=== PATIENT | female | born 1985 ===

== ENCOUNTER 2025-02-18 18:46 | Emergency (ER) | payer OTHER, SELFPAY ==
--- OUTSIDE RECORDS SUMMARY | 2018-07-28 05:26 | XMS_ITS | Continuity of Care Document ---
Author Organization [facility] Address [address] [address] [place] [address] Phone Care Team Providers Care Track Service Person Name Role Phone Link Michael RONDON Unavailable Unavailable Allergies, Adverse Reactions, Alerts Substance Reaction Status Criticality No Known Allergies Active No Inform ation Medications Medication Instructions Dosage Effective Dates (start - stop) Status Comments MICROGESTIN (unknown strength) take 1 tablet by oral route every day Not Available - Active Fleet Enema 19 gram-7 gram/118 mL Use as directed - Active fluoxetine 20 mg capsule take 1 by Oral route every day 1 - Active Procedures Procedure Date Offic/outpt E&m Estab Mod-hi 2 16 Offic/outpt E&m Estab Mod-hi 2 15 Colonoscopy Flex; Dx (jan Pro) 15 Offic/outpt E&m New Mod-mi Advance Directives Directive Yes / No Effective Date File Name No Information Encounters Encounter Description Practice Location Reason(s) For Visit Diagnoses Date Provider Providers Copied on Encounter [facility], [address] [address], [place], [id number], [place] tel:[phone] [facility] No Information 9 Junior Rodriguez. [address] [facility], [facility] [address], [place], [place], [id number], [place]. tel:[phone] Offic/outpt E&m Estab Mod-hi 2 [facility], [address] [address], [place], [id number], [place] tel:[phone] [facility] GI Symptoms or Concerns (chief complaint) Rectal bleeding 6 Adiel Nichole. [address] [facility], [facility] [address], [place], [id number], [place]. tel:[phone] Referring Provider: Referral Self, USE FOR SELF REFERRALS. Offic/outpt E&m [facility] Mod-hi 2 [facility], [address] [address], [place], [place], [id number], [place] tel:[phone] [facility] GI Symptoms or Concerns (chief complaint) Rectal Bleed/BRBPRHem orrhage of anus and rectum 5 Andrew Mckeon. [address] [facility], [address], [id number], [place]. tel:[phone] Referring Provider: Referral Self, USE FOR SELF REFERRALS. [facility], [address] [address], [place], [place], [id number], [place] tel:[phone] [facility] HemorrhoidsRec greer Bleed/BRBPRHem orrhoids 5 Elizabeth Hernandez. [address] [facility], [facility] [address], [place], [id number], [place]. [phone] Referring Provider: Referral Self, USE FOR SELF REFERRALS. Offic/outpt E&m [facility], [address] [address], [place], [place], [id number], [place] tel:[phone] [facility] GI Symptoms or Concerns (chief complaint) Hematochezia/m randall 0 4 No Information Referring Provider: Referral Self, USE FOR SELF REFERRALS. Family History Family Member Type Diagnosis Age At Onset Mother Problem (finding) Alive and well Father Problem (finding) Alive and well Sister Problem (finding) Alive and well Son Problem (finding) Alive and well Brother Problem (finding) Alive and well Immunizations Vaccine Date Status Comments Influenza virus vaccine, injectable, quadrivalent, split virus, preservative free, 3 years or older Fluarix Quad [id number] administered Source: Other Provid er Flu (split) (3 yrs or older) administered Note: Invalid documented admin date was NULL/NULL/2012. ; Source: Other Provider Payers Payer name Insurance type Covered republican ID Authoriza tifelton(s) No Information Social History Type Description Quantity Date Captured Comments Sex Female Smoking Status No Information Chief Complaint And Reason For Visit No Information Reason For Referral Reason For Referral No Information Plan Of Treatment Date Type Action Status Referral Ordered: referred to Pelvic floor center for defocograpthy (related to Rectal Bleed/BRBPR) ordered Referral Ordered: referred to Pelvic floor center for defocograpthy ordered History Of Present Illness Encounter Date Complaint History Of Prese nt Illness GI Symptoms or Concerns The jeane ramos is a 30-year-old female seen by us in the past for intermittent rectal bleeding, incomplete evacuation, and constipation, seen for evaluation of bright red blood per rectum for the last week.The patient was initially seen by us about a year ago. In May 2014, she had a colonoscopy for rectal bleeding. This revealed small internal hemorrhoids and was otherwise normal including the ileum. She was seen in the office by Dr. Morales in September 2014 with complaints of rectal pressure, incomplete evacuation, and intermittent rectal bleeding. Recommendation at that time was for increased fiber and referral to the Pelvic Floor Center. She tells me she did not follow up with the Pelvic Floor Center, but did increase the fiber in her diet and did well until about a week ago, when she began having increased blood in the stool.Lately, she has been having three soft semi-formed stools per day without straining or constipation. This has been the case for the last four months GI Symptoms or Concerns Mable is a 29-year-old woman seen today because of recurrent symptoms of rectal pressure. When she tries to have a bowel movement, she has a sense of increased pressure and is unable to fully go. With this, she may have some bleeding and passes what she describes as a jelly-like substance. There is no real tenesmus. She is able to differentiate between bowel movement or gas. She had undergone colonoscopy within the last four months that was normal with no evidence of disease seen on retroflexion. Her symptoms are not associated with menstrual cycle. No associated urinary symptoms are noted. The issue has been ongoing and with this we are seeing her.With this, she does describe alternating bowel habits. She often fluctuates between looser stools and more constipation. She has not had any weight loss. Menstrual cycle is normal. She has had two pregnancies. She states that recent pelvic exams have been normal. Given her concern, we are seeing her.She otherwise is healthy. GI Symptoms or Concerns The jeane ent is a very pleasant 28-year-old female who presented to clinic today for evaluation of bright red blood per rectum, sensation of incomplete evacuation, and which she describes as a currant jelly like substance after bowel movements. When talking with Mable further, she reports she has had problems with IBS in the past, but really had not had a formal work up for these symptoms. She did have a hemorrhoid banding procedure done by an outside doctor x2 approximately 2 years ago, she reports it is very uncomfortable. She has two sons at home, age 2 and 4 months. She reports her symptoms started to get significantly worse over the last several months. She is now noticing blood with nearly every bowel movement once again and it is painless. She also describes this jelly like substance after bowel movements and a sensation of having to strain to help complete her evacuation. There has been no shaji tenesmus. She denies any fevers or chills. Her weight has been stable and he Functional Status Date Functional Assessmen t No Information Instructions Date Instruction Additional Infor tom 1. Flex Sig [facility]2. request [place] urgent care records, labs3. high fiber diet, avoid straining/constipation4. f/u pending flex sig results Related to Rectal bleeding Flexible Sigmoidoscopy Related t o Hemorrhage of anus and rectum Much of the symptoma tology suggests pelvic floor dysfunction. I suggested that she start with Metamucil on a regular basis one to two tablespoons per day with increasing fluid. In addition she can be set up for Defograms to assess whether there is a pelvic floor process, which seems likely based on her history, although she passes a small amount of blood and has a sense of incomplete evacuation. There is no evidence of colitis or proctitis seen on her recent examination.She will start on the Metamucil and pelvic floor study will be arranged. The followup can then be undertaken to assess whether she is doing well with further recommendations to follow. I am hesitant at this stage otherwise to change her diet, might we can certainly consider lactose restriction, a low FODMAP diet, if she is not feeling better.We appreciate assisting in this patient's care. Related to Rectal Bleed/BRBPR Hemorrhoids Related to Hemor rhoids High Fiber Diet Related to Hemor rhoids Colonoscopy Assessments Type Assessment Date No Information Patient Care Teams Name Effective Dates (start - stop) Status Members No Information
--- OUTSIDE RECORDS SUMMARY | 2018-07-28 05:26 | XMS_ITS | Continuity of Care Document ---
Author Organization [facility] Address [address] [address] [place] [address] Phone Care Team Providers Care Pharmacy Analyst Name Role Phone Link Mcihael RONDON Unavailable Unavailable Allergies, Adverse Reactions, Alerts [...] Dx (jan Pro) 15 Offic/outpt E&m New Mod-nc Advance Directives Directive Yes / No Effective Date File Name No Information Encounters Encounter Description Practice Location Reason(s) For Visit Diagnoses Date Provider Providers Copied on Encounter [facility], [address] [address], [place], [id number], [place] tel:[phone] [facility] No Information 9 Junior Rodriguez. [address] [facility], [facility] [address], [place], [place], [id number], [place]. tel:[phone] Offic/outpt E&m Estab Mod-hi 2 [facility], [address] [address], [place], [id number], [place] tel:[phone] [facility] GI Symptoms or Concerns (chief complaint) Rectal bleeding 6 Adiel Nichole. [address] [facility], [facility] [address], [place], [id number], [place]. tel:[phone] Referring Provider: Referral Self, USE FOR SELF REFERRALS. Offic/outpt E&m [facility] Mod-hi 2 [facility], [address] [address], [place], [place], [id number], [place] tel:[phone] [facility] GI Symptoms or Concerns (chief complaint) Rectal Bleed/BRBPRHem orrhage of anus and rectum 5 Andrew Mckeon. [address] [facility], [address], [id number], [place]. tel:[phone] Referring Provider: Referral Self, USE FOR SELF REFERRALS. [facility], [address] [address], [place], [place], [id number], [place] tel:[phone] [facility] HemorrhoidsRec greer Bleed/BRBPRHem orrhoids 5 Elizabeth Hernandez. [address] [facility], [facility] [address], [place], [id number], [place]. [phone] Referring Provider: Referral Self, USE FOR SELF REFERRALS. Offic/outpt E&m [facility], [address] [address], [place], [place], [id number], [place] tel:[phone] [facility] GI Symptoms or Concerns (chief complaint) Hematochezia/m [...] free, 3 years or older Fluarix Quad [id number] administered Source: Other Provid er Flu (split) (3 yrs or older) administered Note: Invalid documented admin date was NULL/NULL/2012. ; Source: Other Provider Payers Payer name Insurance type Covered democrat ID Authoriza tifelton(s) No Information Social History [...] Instruction Additional Infor tom 1. [facility]2. request [place] urgent care records, labs3. high fiber diet, [...]
--- OUTSIDE RECORDS SUMMARY | 2025-02-18 18:49 | XMS_ITS | Encounter Summary ---
Author Organization [facility] Address [address] [place] [address] Care Team Providers Care Biometric Fingerprinting Technician Name Role Phone DanyelAndrewamelia HICKEY BUILDING GUARD DEPUTY SHERIFF Unavailable [phone] Angelita Montaño APRN BUILDING GUARD DEPUTY SHERIFF Unavailable [phone] Jonathan Zuleta MD Unavailable [phone] MD Primary Care Provider + Reason for Visit * Reason Onset Date Comments Medication Request 12/19/2012 bug bite Encounter Details Date Type Department Care Team (Late st Contact Info) Description 12/19/2012 [facility] Medical Advice [address] [address] Leonor Reis MD Medication Request (bug bite) Social History Tobacco Use Types Packs/Day Years Used Date Smoking Tobacco: Former Cigarettes Q uit: 03/19/2011 Smokeless Tobacco: Never Comments:3 a day Alcohol Use Standard Drinks/Week Comments No 0 (1 standard drink = 0.6 oz pur e alcohol) drinks 1 time a month Comments Unknown Sex and Gender Information Value Date Recorded Sex Assigned at Female 02/15/2022 10:41 PM CDT Legal Sex Female 4:12 AM PUBLIC ADMINISTRATION TEACHER Gender Identity Female 02/15/2022 10:41 PM CDT Sexual Orientation Straight 02/15/2022 10 :41 PM CDT Occupation Industry Job Start Date Job End Date [employer] Not on file Not on file Not on file documented as of this encounter Miscellaneous Notes * Telephone Encounter - Olivia Macario - 12/19/2012 12:03 PM CDT Sent the message to Dr. Reis to review. Olivia RN Message handled by Nurse Triage. documented in this encounter Plan of Treatment Not on file documented as of this encounter Visit Diagnoses Not on filedocumented in this encounter Care Teams Biometric Fingerprinting Technician Relationship Specialty Start Date End Date Angelita Montaño APRN BUILDING GUARD DEPUTY SHERIFF [address] [place] [address] PCP - Assigned PCP 12/08/17 07/29/[address] MD [address] [place] [address] PCP - General stringed instrument tuner 06/12/24 Angelita Montaño APRN BUILDING GUARD DEPUTY SHERIFF [address] [place] [address] Assigned PCP 12/08/17 03/16/22 Jonathan Zuleta MD [address] [place] [address] Assigned Surgical Provider 09/17/23 documented as of this encounter
--- OUTSIDE RECORDS SUMMARY | 2025-02-18 18:49 | XMS_ITS | Encounter Summary ---
Author Organization [facility] Address [address] [place] [address] Care Team Providers Care Endocrinologist Name Role Phone Angelita Montaño APRN STATION BAGGAGE AGENT Unavailable [phone] Angelita Montaño APRN STATION BAGGAGE AGENT Unavailable [phone] Jonathan Zuleta MD Unavailable [phone] MD Primary Care Provider + Encounter Details Date Type Department Care Team (Late st Contact Info) Description 06/16/2008 [facility] Medical Advice [address] [address] Leonor Reis MD Social History Tobacco Use Types Packs/Day Years Used Date Smoking Tobacco: Every Day Cigarettes Comments:3 a day Alcohol Use Standard Drinks/Week Comments Yes 0 (1 standard drink = 0.6 oz pur e alcohol) drinks 1 time a month Comments No Sex and Gender Information Value Date Recorded Sex Assigned at Female 02/15/2022 10:41 PM CDT Legal Sex Female 4:12 AM DIE CAST SUPERVISOR Gender Identity Female 02/15/2022 10:41 PM CDT Sexual Orientation Straight 02/15/2022 10 :41 PM CDT Occupation Industry Job Start Date Job End Date [place] Not on file Not on file Not on file documented as of this encounter Plan of Treatment Not on file documented as of this encounter Visit Diagnoses Not on filedocumented in this encounter Care Teams Endocrinologist Relationship Specialty Start Date End Date Angelita Montaño APRN STATION BAGGAGE AGENT [address] [place] [address] PCP - Assigned PCP 12/08/17 07/29/[address] MD [address] [place] [address] PCP - General chef kitchen manager 06/12/24 Angelita Montaño APRN STATION BAGGAGE AGENT [address] [address] [place], [place] [address] Assigned PCP 12/08/17 03/16/22 Jonathan Zuleta MD [address] [place] [address] Assigned Surgical Provider 09/17/23 documented as of this encounter
--- OUTSIDE RECORDS SUMMARY | 2025-02-18 18:49 | XMS_ITS | Encounter Summary ---
Author Organization [facility] Address [address] [place] [address] Care Team Providers Care Precision Jig Grinder Name Role Phone Angelita Montaño APRN TWISTING DEPARTMENT END FINDER Unavailable [phone] Angelita Montaño APRN TWISTING DEPARTMENT END FINDER Unavailable [phone] Jonathan Zuleta MD Unavailable [phone] MD Primary Care Provider + Encounter Details Date Type Department Care Team (Late st Contact Info) Description 07/22/2008 [facility] Medical Advice [address] [address] Lucero Patel Social History Tobacco Use Types Packs/Day Years Used Date Smoking Tobacco: Every Day Cigarettes Comments:3 a day Alcohol Use Standard Drinks/Week Comments Yes 0 (1 standard drink = 0.6 oz pur e alcohol) drinks 1 time a month Comments No Sex and Gender Information Value Date Recorded Sex Assigned at Female 02/15/2022 10:41 PM CDT Legal Sex Female 4:12 AM ARMATURE WINDER REPAIR HELPER Gender Identity Female 02/15/2022 10:41 PM CDT Sexual Orientation Straight 02/15/2022 10 :41 PM CDT Occupation Industry Job Start Date Job End Date [employer] Not on file Not on file Not on file documented as of this encounter Plan of Treatment Not on file documented as of this encounter Visit Diagnoses Not on filedocumented in this encounter Care Teams Precision Jig Grinder Relationship Specialty Start Date End Date Angelita Montaño APRN TWISTING DEPARTMENT END FINDER [address] [place] [address] PCP - Assigned PCP 12/08/17 07/29/[address] MD [address] [place] [address] PCP - General paleobotanist 06/12/24 Angelita Montaño APRN TWISTING DEPARTMENT END FINDER [address] [address] [place] [address] Assigned PCP 12/08/17 03/16/22 Jonathan Zuleta MD [address] [place] [address] Assigned Surgical Provider 09/17/23 documented as of this encounter
--- OUTSIDE RECORDS SUMMARY | 2025-02-18 18:49 | XMS_ITS | Clinical Summary ---
Author Organization [facility] Address [address] [place] [address] Care Team Providers Care Arch Cushion Press Operator Name Role Phone Pcp, No Primary Care Provider Unavailabl e Allergies No known active allergies Medications temazepam (RESTORIL) 30 mg capsule Take 30 mg by mouth at bedtime if needed. 4 Active albuterol HFA (PRO-AIR; VENTOLIN; PROVENTIL) 90 mcg/actuation inhalerIndicati ons:SOB (shortness of breath) Inhale 1-2 Puffs by mouth every 4 hours if needed for Shortness Of Breath. 1 Each 4 Active benzonatate (TESSALON) 200 mg capsuleIndicati ons:Subacute cough Take 1 Capsule (200 mg) by mouth 3 times daily if needed for Cough. 21 Capsule 4 Active lisdexamfetamin e (VYVANSE) 40 mg capsule Take 1 capsule by mouth each morning* Active minoxidiL (LONITEN) 2.5 mg tab PLEASE SEE ATTACHED FOR DETAILED DIRECTIONS 4 Active buPROPion (WELLBUTRIN XL) 300 mg Extended-Releas e tablet Take 300 mg by mouth. Active escitalopram oxalate (LEXAPRO) 20 mg tablet Take 20 mg by mouth. 4 Active spironolactone (ALDACTONE) 100 mg tablet TAKE ONE TABLET BY MOUTH ONCE DAILY WITH A GLASS FULL OF WATER, ONGOING. 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 Immunizations Immunization Administration Dates Next Due HPV 9 (Gardasil 9) 02/21/2007,09/10/2006, 007 Human Papilloma Virus Vaccine 02/21/2007, 007,07/09/2006 INFLUENZA, IIV3 PF (AGE >= 6 MO) 07/20/2017,02/24 Influenza, IIV3 (Age >=3 years) 02/19/2013,04/10,06/10/2008 Influenza, IIV4 02/26/2023,,03/16/2019,2017 Influenza, IIV4 (=>6mos) MDV 02/22/2015 MMR 11/10/1996 Pneumococcal Poly,23-Valent (Pneumovax) 03/28/2020 Td (Age >=7 Years) 11/10/1996 Tdap 08/02/2023,03/28/2020,06/10/2008 Social History Tobacco Use Types Packs/Day Years Used Date Smoking Tobacco: Former Cigarettes Passive Smoke Exposure: Past Smokeless Tobacco: Never Tobacco Cessation:Counseling Given: Not Answered Alcohol Use Standard Drinks/Week Comments No 0 (1 standard drink = 0.6 oz pur e alcohol) Social Connections Answer Date Recorded Do you often feel lonely or isolated from those around you? 0 04/22/2024 Financial Resource Strain Answer Date R ecorded Difficulty of Paying Living Expenses 3 06/27/2024 Difficulty of Paying Living Expenses Not on file 06/27/2024 Food Insecurity Answer Date Recorded Do you worry your food will run out before you are able to buy more? 1 04/22/2024 Transportation Needs Answer Date Record ed Does lack of transportation keep you from medica l appointments? 1 04/22/2024 Does lack of transportation keep you from work, meetings or getting things that you need? 1 04/22/2024 Housing Stability Answer Date Recorded What is your housing situation today? 1 04/22/2024 Utilities Answer Date Recorded Do you have trouble paying f or utilities (for example, heat, electricity, water, phone)? 1 04/22/2024 Comments No Sex and Gender Information Value Date Recorded Sex Assigned at Not on file Legal Sex Female 8:38 AM SENIOR COMMUNICATIONS ENGINEER Gender Identity Not on file Sexual Orientation Not on file Obstetrics History Para Term AB IAB SAB Ectopic Multiple Livin g Live Births 2 2 2 0 0 0 0 0 0 2 1 Date Outcome GA Total Labor Labor/2nd/3rd Weight Sex Type Anes PTL Bernice A1 A5 Name Clin Term 014 Term 37w 6d 3.57 kg (7 lb 14 oz) M Vag Living 7 9 CARIN-Helder LUKE LLA,B B Delivery Location:[facility] Last Filed Vital Signs Vital Sign Reading Time Taken Comments Blood Pressure 125/77 04/22/2024 6:15 PM SENIOR COMMUNICATIONS ENGINEER MAP - 93 Pulse 97 04/22/2024 6:15 PM SENIOR COMMUNICATIONS ENGINEER Temperature 36.5 C (97.7 F) 04/22/2024 6:15 PM SENIOR COMMUNICATIONS ENGINEER Respiratory Rate 16 04/22/2024 6:15 PM SENIOR COMMUNICATIONS ENGINEER Oxygen Saturation 97% 04/22/2024 6:15 PM SENIOR COMMUNICATIONS ENGINEER Inhaled Oxygen Concentration - - Weight 59 kg (130 lb) 04/09/2024 4:54 PM SENIOR COMMUNICATIONS ENGINEER Height 157.5 cm (5' 2) 10/24/2021 3:46 PM CDT Body Mass Index 23.78 10/24/2021 3:46 PM CDT Plan of Treatment Health Maintenance Due Date Last Done Comments Depression screening for age 12+ 1996 HIV for age 15-65 1999 Hepatitis C screening for age 18-79 2002 Hepatitis B series for 19+ (1 of 3 - 19+ 3-dose series) 2003 Pap test for age 21-65 2005 BMI (ht and wt on same day) for age 18+ 10/24/2022 10/24/2021 COVID-19 vaccine series ( season) 2025 06/09/2021, 11/07/2020, 10/17/2020 Influenza Vaccine (#1) 2025 , 03/28/2020, 03/16/2019, Additional history exists Tetanus booster 08/01/2033 08/02/2023, 06/2019, 06/10/2008, Additional history exists RSV vaccine for adults or (1 - 1-dose 75+ series) 2059 HPV series for age 9-45 Completed 02/22/20 07, 02/21/2007, 09/10/2006, Additional history exists Pneumococcal series for age 6-49 Aged Out 03/28/2020 No longer eligible based on patient's age to complete this topic Insurance [employer] Advance Directives * Full Code (Latest Code Status on File) Date Activated Date Inactivated Comments 09/17/2013 6:53 AM 09/18/2013 1:56 PM * Full Code Date Activated Date Inactivated Comments 09/16/2013 7:25 PM 09/17/2013 6:53 AM * Full Code Date Activated Date Inactivated Comments 09/16/2013 7:19 PM 09/16/2013 7:25 PM * Full Code Date Activated Date Inactivated Comments 08/03/2013 4:14 PM 08/03/2013 7:21 PM * Full Code Date Activated Date Inactivated Comments 07/27/2013 10:24 PM 07/30/2013 2:46 PM Care Teams Arch Cushion Press Operator Relationship Specialty Start Date End Date Pcp, No . PCP - General 03/27/21
--- OUTSIDE RECORDS SUMMARY | 2025-02-18 18:49 | XMS_ITS | Encounter Summary ---
Author Organization [facility] Address [address] [place] [address] Care Team Providers Care Auto Refinisher Name Role Phone DanyelAndrewamelia HICKEY TECHNICAL OPERATIONS MANAGER Unavailable [phone] Angelita Montaño APRN TECHNICAL OPERATIONS MANAGER Unavailable [phone] Jonathan Zuleta MD Unavailable [phone] MD Primary Care Provider + Reason for Visit * Reason Onset Date Comments Other 11/25/2011 Encounter Details Date Type Department Care Team (Late st Contact Info) Description 11/25/2011 MyC Medical Advice [address] [address] Leonor Reis MD Other Social History Tobacco Use Types Packs/Day Years Used Date Smoking Tobacco: Former Cigarettes Q uit: 03/19/2011 Comments:3 a day Alcohol Use Standard Drinks/Week Comments Yes 0 (1 standard drink = 0.6 oz pur e alcohol) drinks 1 time a month Comments Yes Sex and Gender Information Value Date Recorded Sex Assigned at Female 02/15/2022 10:41 PM CDT Legal Sex Female 4:12 AM LANGUAGE PATHOLOGIST Gender Identity Female 02/15/2022 10:41 PM CDT Sexual Orientation Straight 02/15/2022 10 :41 PM CDT 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 on file Not on file documented as of this encounter Plan of Treatment Not on file documented as of this encounter Visit Diagnoses Not on filedocumented in this encounter Care Teams Auto Refinisher Relationship Specialty Start Date End Date Angelita Montaño APRN TECHNICAL OPERATIONS MANAGER [address] [address] [address] PCP - Assigned PCP 12/08/17 07/29/[address] MD [address] [place] [address] PCP - General hull grinder 06/12/24 Angelita Montaño APRN TECHNICAL OPERATIONS MANAGER [address] [address] [address] Assigned PCP 12/08/17 03/16/22 Jonathan Zuleta MD [address] [place] [address] Assigned Surgical Provider 09/17/23 documented as of this encounter
--- OUTSIDE RECORDS SUMMARY | 2025-02-18 18:49 | XMS_ITS | Patient Health Record ---
Author Organization [facility] Address [address] [place] [address] Care Team Providers Care Braider Tender Name Role Phone Linda St Primary Care Provider MARIA M Marlow Unavailable [phone] Allergies Allergen (clinical drug ingredient) Drug/Non Drug Allergy documented on EMR Reaction Allergy Type Onset Date Status Na (uncoded) Unknown Allergy Active Reason For Referral No Information Medications Medication SIG (Take, Route, Frequency, Duration) Notes Start Date End Date Status PriLOSEC 20 MG Capsule Delayed Release 1 capsule Orally Once a day; Duration: 30 day(s) 01/20/2021 Active Wellbutrin SR 150 MG Tablet Extended Release 12 Hour 1 tablet in the morning Orally Once a day; Duration: 30 day(s) 2 daily Active Lexapro 20 MG Tablet 1 tablet Orally Onc e a day; Duration: 30 day(s) Active Temazepam 15 MG Capsule 1 capsule at bed time as needed Orally Once a day Active Social History Tobacco Use: Social History Observation Description Date Details (start date - stop date) Current Smoker NA - NA Social History Alcohol Use: Social Info Question Answer Notes Recreational drugs Recreational Drug Use: No Alcohol Screen Did you have a drink containing alcohol in the past year? No Tobacco Use: Social Info Question Answer Notes Tobacco use/smoking Are you a current smoker How often do you smoke cigarettes? every day How many cigarettes a day do you smoke? 11-20 How soon after you wake up do you smoke your first cigarette? 6-30 minutes Additional Details Category Social Info Options Details Household: Occupation Poultry Dressing Worker Problems Problem Type SNOMED Code ICD Code Onset Dates Problem Status W/U Status Risk Notes Problem Laryngopharyngeal reflux (221665608) LPRD (laryngoph aryngeal reflux disease) (K21.9) Active confirmed Plan Of Treatment No Information Insurance Providers Payer Name Payer Address Payer Phone Subscriber Number Group Number Insured Name Patient Relationship to Insured Coverage Start Date Coverage End Date [facility] [address] [place] [phone] [id number] Mable Lee Self - patient is the insured Medical (General) History Medical History History ICD Code Anxiety Depression Cancer: NA Other Medical problems:: NA Covid 3-21 Covid vaccine 6-21 Surgical History Surgery Date(Month/Year) Removal of abscess 10/19/2020 Hospitalization History Reason Date(Month/Year) Na
--- OUTSIDE RECORDS SUMMARY | 2025-02-18 18:49 | XMS_ITS | Clinical Summary ---
Author Organization [facility] Address [address] [place] [address] Care Team Providers Care Pipe Line Gauger Name Role Phone Jonathan Zuleta MD Unavailable [phone] MD Primary Care Provider + Allergies Active Allergy Reactions Criticality Noted Date Comments No Known Drug Allergy 02/11/2003 Medications temazepam (RESTORIL) 30 MG capsule Take 30 mg by mouth nightly as needed for sleep 30 capsule 7 Active spironolactone (ALDACTONE) 100 MG tablet Take 100 mg by mouth 2 times daily Active escitalopram (LEXAPRO) 20 MG tablet Take 20 mg by mouth daily 4 Active ISOtretinoin (ABSORICA) 30 MG capsule Take 30 mg by mouth daily 4 Active lisdexamfetamin e (VYVANSE) 40 MG capsule Take 40 mg by mouth every morning 4 Active buPROPion (WELLBUTRIN XL) 300 MG 24 hr tablet Take 300 mg by mouth every morning Active oxyCODONE (ROXICODONE) 5 MG tabletIndicatio ns:Ovarian torsion Take 1-2 tablets (5-10 mg) by mouth every 4 hours as needed for moderate to severe pain 6 tablet 4 Active Additional Information Patient not taking.Reported on 09/04/2023 senna-docusate (SENOKOT-S/MICHAEL COLACE) 8.6-50 MG tabletIndicatio ns:Ovarian torsion Take 1-2 tablets by mouth 2 times daily 30 tablet 4 Active Additional Information Patient not taking.Reported on 09/04/2023 triamcinolone (KENALOG) 0.1 % external cream as needed 2 Active Active Problems Problem Noted Date Diagnosed Date Salpingitis 07/24/2023 Intractable abdominal pain 07/24/2023 Sterilization consult 10/15/2015 De Quervain's tenosynovitis 06/03/2012 Anxiety 01/17/2012 CARDIOVASCULAR SCREENING; LDL GOAL LESS THAN 160 07/06/2009 Anxiety 01/17/2009 Other acne 06/11/2003 Overview (05/01/2006): accutane 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 Provider to review Immunizations Immunization Administration Dates Next Due HPV 02/21/2007,09/10/2006,07/09/2006 Influenza (IIV3) PF 02/19/2013, 2,04/10/2010,2008 Influenza (prior to 2023) 07/20/2017,03/12/2012 Influenza Vaccine >6 months,quad, PF 07/2022,03/28/2020,03/16/2019,2017 Influenza Vaccine, 6+MO IM (QUADRIVALENT W/PRESERVATIVES) 02/22/2015 MMR (MMRII) 11/10/1996 Pneumococcal 23 valent 03/28/2020 TDAP (Adacel,Boostrix) 03/28/2020,11/10/1996 TDAP Vaccine (Adacel) 06/10/2008 Family History Medical History Relation Comments Diabetes Father Hypertension Father Alzheimer Disease Maternal Grandfather Hypertension Mother Breast Cancer No family hx of C.A.D. No family hx of Cancer - colorectal No family hx of Cerebrovascular Disease No family hx of Thyroid Disease No family hx of Relation Status Comments Brother Alive Father Alive Maternal Grandfather Alive Maternal Grandmother Alive Mother Alive Paternal Grandfather Paternal Grandmother Sister Alive x2 Social History Tobacco Use Types Packs/Day Years Used Date Smoking Tobacco: Former Cigarettes 0.5 10.6 S tarted: 07/23/2014 Smokeless Tobacco: Never Tobacco Cessation:Counseling Given: Yes Comments:3 a day Alcohol Use Standard Drinks/Week Comments Not Currently 0 (1 standard drink = 0.6 oz pur e alcohol) PHQ-2 Answer Date Recorded PHQ-2 Score 0 03/16/2019 Adolescent Education Answer Date Record ed Getting School Help Needed Not on file 02/20 Comments No Sex and Gender Information Value Date Recorded Sex Assigned at Female 02/15/2022 10:41 PM CDT Legal Sex Female 4:12 AM GOAL UMPIRE Gender Identity Female 02/15/2022 10:41 PM CDT Sexual Orientation Straight 02/15/2022 10 :41 PM CDT 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 Not on file Not on file Last Filed Vital Signs Vital Sign Reading Time Taken Comments Blood Pressure 108/68 09/04/2023 1:28 PM CDT Pulse 104 09/04/2023 1:28 PM CDT Temperature 36.9 C (98.5 F) 07/24/2023 6:15 PM GOAL UMPIRE Respiratory Rate 16 09/04/2023 1:28 PM CDT Oxygen Saturation 98% 09/04/2023 1:28 PM CDT Inhaled Oxygen Concentration - - Weight 63.5 kg (140 lb) 09/04/2023 1:28 PM CDT Height 157.5 cm (5' 2) 09/04/2023 1:28 PM CDT Body Mass Index 25.61 09/04/2023 1:28 PM CDT Plan of Treatment Health Maintenance Due Date Last Done Comments ADVANCE CARE PLANNING 1984 ANNUAL REVIEW OF HM ORDERS 1984 HEPATITIS C SCREENING 2002 HEPATITIS B VACCINE (1 of 3 - 19+ 3-dose series) 2003 PAP 09/24/2018 09/25/2015, 06/0 05/2013, 08/26/2009, Additional history exists YEARLY PREVENTIVE VISIT 03/16/2020 03/16/20 19, 08/26/2009, 07/19/2008, Additional history exists LIPID 03/16/2024 03/16/2019, 07/19/2008 PHQ-2 (once per calendar year) 2024 03/16/2019, 11/26/2017, 10/03/2016, Additional history exists COVID-19 VACCINE ( season) 2025 06/09/2021, 11/07/2020, 10/17/2020 INFLUENZA VACCINE (#1) 2025 , 03/28/2020, 03/16/2019, Additional history exists MAMMO SCREENING 06/12/2026 06/12/2024 DIABETES SCREENING 07/22/2026 07/22/2023, 1 , 03/16/2019, Additional history exists DTAP/TDAP/TD VACCINE (5 - Td or Tdap) 08/01/2033 08/02/2023, 03/28/2020, 06/10/2008, Additional history exists ZOSTER VACCINE (1 of 2) 2034 HIV SCREENING Completed 07/09/2006 HPV VACCINE Completed 02/21/2007, 08/25, 07/09/2006 PNEUMOCOCCAL VACCINE: PEDIATRICS (0 to 5 YEARS) AND AT-RISK PATIENTS (6 to 49 YEARS) Aged Out 03/28/2020 No longer eligible based on patient's age to complete this topic MENINGITIS VACCINE Aged Out No longer eligible based on patient's age to complete this topic Procedures Procedure Name Priority Date/Time Associated Diagnosis Comments MA SCREENING BILATERAL W/ SASCHA Routine 06/12/2024 8:27 AM GOAL UMPIRE Screening mammogram, encounter for COMPREHENSIVE METABOLIC PANEL STAT 07/22/2023 11:47 PM GOAL UMPIRE LIPID REFLEX TO DIRECT LDL PANEL Routine 03/16/2019 9:42 AM CDT Routine general medical examination at a health care facility PAP SMEAR - HIM PATIENT REPORTED Routine 09/25/2015 HCL HIV 1 & 2 ANTIBODY Routine 7 1:50 PM GOAL UMPIRE Screening For Veneral Dis from Last 3 Months or Most Recently Relevant to Health Maintenance Results * MA Screening Bilateral w/ Sascha (06/12/2024 8:27 AM GOAL UMPIRE) Anatomical Region Laterality Modality Breast Bilateral Mammography Impressions 06/12/2024 8:28 AM GOAL UMPIRE IMPRESSION: ACR BI-RADS Category 1: Negative BREAST CANCER SCREENING RECOMMENDATION: Routine yearly mammography beginning at age 40 or as discussed with your provider. The results and recommendations of this examination will be communicated to the patient. Zackery Hernadez MD Narrative 06/12/2024 8:28 AM GOAL UMPIRE BILATERAL FULL FIELD DIGITAL SCREENING MAMMOGRAM WITH TOMOSYNTHESIS Performed on: 06/12/24 No comparisons were made when reading this study. Technique: This study was evaluated with the assistance of Computer-Aided Detection. Breast Tomosynthesis was used in interpretation. Findings: The breasts are heterogeneously dense, which may obscure small masses. There is no radiographic evidence of malignancy. us Linda St MD IMG MAMMOGRAPHY ORDERABL ES Final Result * (ABNORMAL) Comprehensive metabolic panel (07/22/2023 11:47 PM GOAL UMPIRE) Sodium 134(L) 135 - 145 mmol/L 07/23/2023 12:25 AM GOAL UMPIRE [facility] Comment:Reference intervals for this test were updated on 02/19/2023 to more accurately reflect our healthy population. There may be differences in the flagging of prior results with similar values performed with this method. Interpretation of those prior results can be made in the context of the updated reference intervals. Potassium 4.1 3.4 - 5.3 mmol/L 07/23/2023 12:25 AM GOAL UMPIRE [facility] Carbon Dioxide (CO2) 30(H) 22 - 29 mmol/L 07/23/2023 12:25 AM GOAL UMPIRE [facility] Anion Gap 8 7 - 15 mmol/L 07/23/2023 12:25 AM GOAL UMPIRE [facility] Urea Nitrogen 13.4 6.0 - 20.0 mg/dL 07/23/2023 12:25 AM GOAL UMPIRE [facility] Creatinine 0.80 0.51 - 0.95 mg/dL 07/23/2023 12:25 AM [facility] GFR Estimate >90 >60 mL/min/1. 73m2 07/23/2023 12:25 AM [facility] Calcium 10.2(H) 8.6 - 10.0 mg/dL 07/23/2023 12:25 AM [facility] Chloride 96(L) 98 - 107 mmol/L 07/23/2023 12:25 AM [facility] Glucose 91 70 - 99 mg/dL 07/23/2023 12:25 AM [facility] Alkaline Phosphatase 51 40 - 150 U/L 07/23/2023 12:25 AM [facility] Comment:Reference intervals for this test were updated on 04/09/2023 to more accurately reflect our healthy population. There may be differences in the flagging of prior results with similar values performed with this method. Interpretation of those prior results can be made in the context of the updated reference intervals. AST 22 0 - 45 U/L 07/23/2023 12:25 AM [facility] Comment:Reference intervals for this test were updated on 11/05/2022 to more accurately reflect our healthy population. There may be differences in the flagging of prior results with similar values performed with this method. Interpretation of those prior results can be made in the context of the updated reference intervals. ALT 26 0 - 50 U/L 07/23/2023 12:25 AM [facility] Comment:Reference intervals for this test were updated on 11/05/2022 to more accurately reflect our healthy population. There may be differences in the flagging of prior results with similar values performed with this method. Interpretation of those prior results can be made in the context of the updated reference intervals. Protein Total 8.0 6.4 - 8.3 g/dL 07/23/2023 12:25 AM [facility] Albumin 4.7 3.5 - 5.2 g/dL 07/23/2023 12:25 AM [facility] Bilirubin Total <0.2 <=1.2 mg/dL 07/23/2023 12:25 AM [facility] Blood STRUCTURE OF RIGHT UPPER LIMB / Unknown Venipuncture / Unknown 07/22/2023 11:47 PM GOAL UMPIRE 07/23/2023 12:05 AM GOAL UMPIRE us Larry Wolf MD LAB - BLOOD ORDERABLES Fi nal Result [facility] [address] Lab (1st floor, no room number) [place] [address], [place] [phone] * (ABNORMAL) Lipid panel reflex to direct LDL Non-fasting (03/16/2019 9:42 AM CDT) Cholesterol 189 <200 mg/dL 03/17/2019 8:[address] [facility] Triglycerides 107 <150 mg/dL 03/17/2019 8:[address] [facility] HDL Cholesterol 49(L) >49 mg/dL 9 8:[address] [facility] LDL Cholesterol Calculated 119(H) <100 mg/dL 03/17/2019 8:[address] [facility] Comment: Above desirable: 100-129 mg/dl Borderline High: 130-159 mg/dL High: 160-189 mg/dL Very high: >189 mg/dl Non HDL Cholesterol 140(H) <130 mg/dL 03/17/2019 8:[address] [facility] Comment: Above Desirable: 130-159 mg/dl Borderline high: 160-189 mg/dl High: 190-219 mg/dl Very high: >219 mg/dl Blood specimen (specimen) 03/16/2019 9:42 AM CDT 03/16/2019 9:43 AM CDT us Angelita Montaño APRN SALES ENGINEERING MANAGER LAB - BLOOD ORDERABLES F inal Result [facility] [address] [place] [address] * PAP Smear - HIM Patient Reported (09/25/2015) PAP Smear - HIM Patient Reported Negative EXTERNAL LAB 09/25/2015 Narrative EXTERNAL LAB - 09/25/2015 Please abstract the following data from this visit with this patient into the appropriate field in Epic: Pap smear done on this date: 09/2015 (approximately), by this group: [facility], results were Normal. us Patient Reported LABORATORY Final Result EXTERNAL LAB External Lab * HIV 1 & 2, SCREEN (07/09/2006 1:50 PM GOAL UMPIRE) HIV 1&2 Antibody Negative [facility]G [facility] 07/09/2006 1:50 PM GOAL UMPIRE 07/09/2006 1:53 PM GOAL UMPIRE us Sally Esteban MD LABORATORY Final Result [facility] [address] [place] [address] from Last 3 Months or Most Recently Relevant to Health Maintenance Insurance [facility] [employer] Advance Directives For more information, please contact: [phone] * Full Code (Latest Code Status on File) Date Activated Date Inactivated Comments 07/24/2023 3:48 AM 07/24/2023 8:27 PM All basic an d advanced life-sustaining interventions are performed as appropriate Question Answer Comments Code status determined by: Discussion with patie nt/ legal decision maker Care Teams Pipe Line Gauger Relationship Specialty Start Date End Date Linda St MD [address] [place] [address] PCP - General facility maintenance manager 06/12/24 Jonathan Zuleta MD [address] [place] [address] Assigned Surgical Provider 09/17/23
--- OUTSIDE RECORDS SUMMARY | 2025-02-18 18:49 | XMS_ITS | Encounter Summary ---
Author Organization [facility] Address [address] [place] [address] Care Team Providers Care Nurse First Aid Name Role Phone DanyelAlexyAngelitamarya HICKEY ELECTRIC MOTOR REPAIRMAN Unavailable [phone] Angelita Montaño APRN ELECTRIC MOTOR REPAIRMAN Unavailable [phone] Jonathan Zuleta MD Unavailable [phone] MD Primary Care Provider + Reason for Visit * Reason Onset Date Comments Medication Question 04/11/2010 steroids Encounter Details Date Type Department Care Team (Late st Contact Info) Description 04/11/2010 MyC Medical Advice [address] [address] Domo eDnnis MD [address] [place] [address] Medication Question (steroids) Social History Tobacco Use Types Packs/Day Years Used Date Smoking Tobacco: Every Day Cigarettes Comments:3 a day Alcohol Use Standard Drinks/Week Comments Yes 0 (1 standard drink = 0.6 oz pur e alcohol) drinks 1 time a month Comments No Sex and Gender Information Value Date Recorded Sex Assigned at Female 02/15/2022 10:41 PM CDT Legal Sex Female 4:12 AM MAINTENANCE WELDER Gender Identity Female 02/15/2022 10:41 PM CDT Sexual Orientation Straight 02/15/2022 10 :41 PM CDT 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 Not on file Not on file documented as of this encounter Plan of Treatment Not on file documented as of this encounter Visit Diagnoses Not on filedocumented in this encounter Care Teams Nurse First Aid Relationship Specialty Start Date End Date Angelita Montaño APRN ELECTRIC MOTOR REPAIRMAN [address] [place] [address] PCP - Assigned PCP 12/08/17 07/29/[address] MD [address] [place] [address] PCP - General crester 06/12/24 Angelita Montaño APRN ELECTRIC MOTOR REPAIRMAN [address] [place] [address] Assigned PCP 12/08/17 03/16/22 Jonathan Zuleta MD [address] [place] [address] Assigned Surgical Provider 09/17/23 documented as of this encounter
--- OUTSIDE RECORDS SUMMARY | 2025-02-18 18:49 | XMS_ITS | Encounter Summary ---
Author Organization [facility] Address [address] [place] [address] Care Team Providers Care Housekeeping Assistant Name Role Phone Danyel Angelita HICKEY RESIDENTIAL MANAGER Unavailable [phone] Angelita Montaño APRN RESIDENTIAL MANAGER Unavailable [phone] Jonathan Zuleta MD Unavailable [phone] MD Primary Care Provider + Reason for Visit * Reason Onset Date Comments Patient Request 09/23/2009 thyroid Encounter Details Date Type Department Care Team (Late st Contact Info) Description 09/23/2009 MyC Medical Advice [address] [address] Leonor Reis MD Patient Request (thyroid) Social History Tobacco Use Types Packs/Day Years Used Date Smoking Tobacco: Every Day Cigarettes Comments:3 a day Alcohol Use Standard Drinks/Week Comments Yes 0 (1 standard drink = 0.6 oz pur e alcohol) drinks 1 time a month Comments No Sex and Gender Information Value Date Recorded Sex Assigned at Female 02/15/2022 10:41 PM CDT Legal Sex Female 4:12 AM DECKHAND FISHING VESSEL Gender Identity Female 02/15/2022 10:41 PM CDT Sexual Orientation Straight 02/15/2022 10 :41 PM CDT Occupation Industry Job Start Date Job End Date [employer] Not on file Not on file Not on file documented as of this encounter Plan of Treatment Not on file documented as of this encounter Visit Diagnoses Diagnosis Cold intolerance- Primary Other general symptoms documented in this encounter Care Teams Housekeeping Assistant Relationship Specialty Start Date End Date Angelita Montaño APRN RESIDENTIAL MANAGER [address] [address] [address] PCP - Assigned PCP 12/08/17 07/29/[address] MD [address] [place] [address] PCP - General nutrition services worker 06/12/24 Angelita Montaño APRN RESIDENTIAL MANAGER [address] [place] [address] Assigned PCP 12/08/17 03/16/22 Jonathan Zuleta MD [address] [place] [address] Assigned Surgical Provider 09/17/23 documented as of this encounter
--- OUTSIDE RECORDS SUMMARY | 2025-02-18 18:49 | XMS_ITS | Encounter Summary ---
Author Organization [facility] Address [address] [place] [address] Care Team Providers Care Education Rn Name Role Phone DanyelAlexyAngelitamarya HICKEY CNC LASER OPERATOR Unavailable [phone] Angelita Montaño APRN CNC LASER OPERATOR Unavailable [phone] Jonathan Zuleta MD Unavailable [phone] MD Primary Care Provider + Reason for Visit * Reason Onset Date Comments Smoking Cessation 02/14/2011 Encounter Details Date Type Department Care Team (Late st Contact Info) Description 02/14/2011 MyC Medical Advice [address] [address] Leonor Reis MD Smoking Cessation Social History Tobacco Use Types Packs/Day Years Used Date Smoking Tobacco: Every Day Cigarettes Comments:3 a day Alcohol Use Standard Drinks/Week Comments Yes 0 (1 standard drink = 0.6 oz pur e alcohol) drinks 1 time a month Comments No Sex and Gender Information Value Date Recorded Sex Assigned at Female 02/15/2022 10:41 PM CDT Legal Sex Female 4:12 AM REFRIGERATION PLANT OPERATOR Gender Identity Female 02/15/2022 10:41 PM CDT Sexual Orientation Straight 02/15/2022 10 :41 PM CDT Occupation Industry Job Start Date Job End Date [place] Not on file Not on file Not on file documented as of this encounter Miscellaneous Notes * Telephone Encounter - IsmaelSally - 04/23/2011 1:59 PM CST See MyChart response. Sally Guevara RN IGERATION PLANT OPERATOR * Telephone Encounter - Sally Guevara - 02/14/2011 12:02 PM CDT See MyChart. Patient requesting prescription for Nicoderm. Last OV:08/26/09 Patient informed OV is due. Sally Guevara RN documented in this encounter Plan of Treatment Not on file documented as of this encounter Visit Diagnoses Diagnosis Tobacco abuse- Primary Tobacco use disorder documented in this encounter Care Teams Education Rn Relationship Specialty Start Date End Date Angelita Montaño APRN CNC LASER OPERATOR [address] [place] [address] PCP - Assigned PCP 12/08/17 07/29/[address] MD [address] [place] [address] PCP - General coffee host 06/12/24 Angelita Montaño APRN CNC LASER OPERATOR [address] [place] [address] Assigned PCP 12/08/17 03/16/22 Jonathan Zuleta MD [address] [place] [address] Assigned Surgical Provider 09/17/23 documented as of this encounter
--- OUTSIDE RECORDS SUMMARY | 2025-02-18 18:50 | XMS_ITS | Encounter Summary ---
Author Organization [facility] Address [address] [place] [address]. [place] [address] Care Team Providers Care Television Repair Teacher Name Role Phone Angelita Montaño APRN AERIAL SPRAYER Unavailable [phone] Jonathan Zuleta MD Unavailable [phone] MD Primary Care Provider + Reason for Visit * Reason Onset Date Comments Lab Result Notice 03/16/2019 Encounter Details Date Type Department Care Team (Late st Contact Info) Description 03/16/2019 MyC Medical Advice [address], [address] [place] [address] Angelita Montaño APRN AERIAL SPRAYER [address] [place], [place] [id number] Lab Result Notice Social History Tobacco Use Types Packs/Day Years Used Date Smoking Tobacco: Every Day Cigarettes 0.5 10.6 Started: 07/23/2014 Smokeless Tobacco: Never Comments:3 a day Alcohol Use Standard Drinks/Week Comments No 0 (1 standard drink = 0.6 oz pur e alcohol) drinks 1 time a month PHQ-2 Answer Date Recorded PHQ-2 Score 0 03/16/2019 Comments No Sex and Gender Information Value Date Recorded Sex Assigned at Female 02/15/2022 10:41 PM CDT 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 Gender Identity Female 02/15/2022 10:41 PM CDT Sexual Orientation Straight 02/15/2022 10 :41 PM CDT Occupation Industry Job Start Date Job End Date [employer] Not on file Not on file Not on file documented as of this encounter Plan of Treatment Not on file documented as of this encounter Visit Diagnoses Not on filedocumented in this encounter Care Teams Television Repair Teacher Relationship Specialty Start Date End Date Linda St MD [address] [id number] PCP - General solvent mixer 06/12/24 Angelita Montaño APRN AERIAL SPRAYER [id number] [address] [id number] Assigned PCP 12/08/17 03/16/22 Jonathan Zuleta MD [address] [id number] Assigned Surgical Provider 09/17/23 documented as of this encounter
--- OUTSIDE RECORDS SUMMARY | 2025-02-18 18:50 | XMS_ITS | CCD ---
Author Name Interface, [address] lity Address [address] [id number] [facility] Address [address] [place] [address] Reason for Visit Social History Date Name Value 01/23/2025 Sex Female Gender Identity Identifies as fe male
[2025-02-18 18:58] VITALS: BP 105/64; PULSE 92; RESP 16; TEMP 36.2; O2SAT 97; BMI 22.5
--- NOTE | 2025-02-18 19:15 | ED.HA ---
HPI - Headache General Time Seen by Provider: 19:15 Date Seen: 02/18/25 Chief Complaint: Headache/Migraine Stated Complaint: Headache for 3 days Time Seen by Provider: 02/18/25 19:15 Source: patient and RN notes reviewed Mode of arrival: ambulatory Limitations: no limitations History of Present Illness HPI Narrative: Mable is a very pleasant 39-year-old female with tubal ligation denying previously healthy who comes to the emergency room with complaints of a headache. Patient notes the onset of a headache forehead on Saturday night February 14. She noticed that her shoulders were very tight with this in actually underwent massage what seemed to help at the time. Unfortunately her headache did return. Night is more on the top of her head in the anterior parietal and frontal scalp. She denies neck pain fever cough cold congestion runny nose or sore throat. She is not in outdoors person and denies any recent tick bites or camping. She denies any visual changes or difficulty looking at lights. She states her headache is worse when she is standing up. No nausea vomiting unusual rash. History of DVT or clots. She is rating the pain a 9/10. Related Data Home Medications ?Medication ?Instructions ?Recorded ?Confirmed albuterol sulfate 90 mcg/actuation 1 - 2 puff inhalation Q4H PRN 02/18/25 02/18/25 aerosol inhaler dyspnea bupropion HCl 300 mg 24 hr tablet, 300 mg PO QAM 02/18/25 02/18/25 extended release clascoterone 1 % topical cream applic topical BID acne 02/18/25 (Winlevi) clindamycin phosphate 1 % lotion topical BID 02/18/25 escitalopram oxalate 20 mg tablet 20 mg PO DAILY 02/18/25 02/18/25 isotretinoin 20 mg capsule 20 mg PO DAILY 02/18/25 02/18/25 (Claravis) isotretinoin 30 mg capsule 30 mg PO DAILY 02/18/25 02/18/25 lisdexamfetamine 40 mg capsule mg PO QAM 02/18/25 lisdexamfetamine 50 mg capsule 50 mg PO DAILY 02/18/25 02/18/25 minoxidil 2.5 mg tablet mg PO 02/18/25 spironolactone 100 mg tablet 100 mg PO DAILY 02/18/25 02/18/25 spironolactone 25 mg tablet 25 mg PO DAILY 02/18/25 02/18/25 temazepam 30 mg capsule 30 mg PO QPM PRN 02/18/25 02/18/25 Allergies Allergy/AdvReac Type Severity Reaction Status Date / Time No Known Drug Allergies Allergy Verified 02/18/25 18:56 Review of Systems Status of ROS: Reports: 10 or more systems reviewed and unremarkable except as noted in History and below Const: Denies: fever, chills or fatigue Eyes: Denies: change in vision, blurry vision or seeing flashes ENMT: Denies: throat pain, neck pain, difficulty swallowing, nasal discharge or nasal congestion Cardio: Denies: chest pain, swelling of feet/ankles, lightheadedness or shortness of breath with exertion Resp: Denies: shortness of breath or cough GI: Denies: abdominal pain, nausea, vomiting or difficulty swallowing : Denies: painful urination Musculo: Denies: back pain, neck pain or extremity pain Integ/Breast: Reports: skin pain and skin tenderness; Denies: rash, itching, redness, skin swelling or sores Neuro: Reports: headache; Denies: numbness in extremities, weakness in extremities or lack of coordination Endo: Denies: fatigue Exam Narrative: Exam Narrative: Alert and oriented. GCS 15. EOM is full pupils equal round reactive and there is no photophobia. Face symmetrical. Eyebrow raise smile intact. Palpation over the forehead with percussion on comfortable bilaterally. Point tenderness noted over the left frontal scalp. Examination of the scalp shows nose lesions erythema blister formation. Neck is supple. No pain with palpation and mid cervical spine. Patient does have very tight muscles in the shoulder blades. As I do palpate the neck and shoulder she notes that actually feels better. Heart with a regular rate and rhythm and lungs are clear in all lung noriega. No coughing noted while she was in the ED. moving all extremities. Lower extremities without any edema. No erythema. Const: Vital Signs, click to edit/add: Vital Signs - 24 hr 02/18/25 18:58 Temperature 97.1 F L Pulse Rate [Pulse Oximeter] 92 Respiratory Rate 16 Blood Pressure [Ri ght Upper Arm] 105/64 Pulse Oximetry 97 Oxygen Delivery Me thod Room Air Documenting provider has reviewed patient's vital signs: yes Course Course ED Course: Differential diagnosis includes but is not limited to migraine, headache, shingles, intracranial bleed, sinus bees and throws thrombosis, COVID, strep. At this time will place IV, use normal saline 1 L, Reglan 10 mg IV piggyback and Benadryl 25 mg to see if we can give her some headache relief. Because she has not had headaches in the past quite like this will also check a CBC basic and CRP. If pain continues will consider CT of the brain. Patient voices understanding and appears to be happy with this plan. Reevaluation(s) Reevaluation #1: Patient noted to have moderate improvement of her headache down to a 5/10 with Reglan and Benadryl. She then received Toradol 15 mg and now her headache is down to a 1 and is presenting as a dull ache. Laboratory values are reassuring with no evidence of leukocytosis or elevated CRP. Her strep and COVID are both negative. I do speak to Mable and she thinks that her headache is from stress. States she has been under stress and this causes her shoulders to tightening. At this time shared decision making with proceeding with CT and she would like to hold off. I think this is reasonable in light of her reassuring exam vital signs as well as laboratory values. She has no meningeal signs at this time. Vital Signs Vital signs: Initial Vital Signs Temperature 97.1 F L 02/18/25 18:58 Temperature Source Temporal Artery Scan 02/18/25 18:58 Pulse Rate 92 02/18/25 18:58 Respiratory Rate 16 02/18/25 18:58 Blood Pressure 105/64 02/18/25 18:58 Blood Pressure Mean 77 02/18/25 18:58 Pulse Oximetry 97 02/18/25 18:58 Oxygen Delivery Method Room Air 02/18/25 18:58 Vital Signs Temperature 97.1 F L 02/18/25 18:58 Pulse Rate 92 02/18/25 18:58 Respiratory Rate 16 02/18/25 18:58 Blood Pressure 105/64 02/18/25 18:58 Pulse Oximetry 97 02/18/25 18:58 Oxygen Delivery Method Room Air 02/18/25 18:58 Temperature 97.1 F L 02/18/25 18:58 Pulse Rate 92 02/18/25 18:58 Respiratory Rate 16 02/18/25 18:58 Blood Pressure 105/64 09/25/25 18:58 Pulse Oximetry 97 02/18/25 18:58 Oxygen Delivery Method Room Air 02/18/25 18:58 Medications Administered Medications: Generic Name Dose Route Start Last Admin Trade Name Hannah PRN Reason Stop Dose Admin Ketorolac Tromethamine 15 mg 02/18/25 20:38 02/18/25 20:47 Ketorolac 15 Mg/Ml Inj IVP 02/18/25 20:39 15 mg ONCE ONE Administration Discontinued Medications Generic Name Dose Route Start Last Admin Trade Name Hannah PRN Reason Stop Dose Admin Diphenhydramine HCl 25 mg 02/18/25 19:29 02/18/25 20:08 Diphenhydramine 50 Mg/Ml Inj IVP 02/18/25 19:30 25 mg ONCE ONE Administration Sodium Chloride 1,000 mls @ 1,000 mls/hr 02/18/25 19:30 02/18/25 20:29 0.9 % Sodium Chloride 1000 Ml IV 02/18/25 20:29 Infused .Q1H DEVIN Infusion Metoclopramide HCl 10 mg/ 102 mls @ 306 mls/hr 02/18/25 19:29 02/18/25 20:29 Sodium Chloride IVPB 02/18/25 19:30 Infused ONCE ONE Infusion MDM - Headache MDM Narrative Medical decision making narrative: 1. Headache-greatly improved with Benadryl, Toradol, Reglan. At this time will not proceed with CT given reassuring labs, exam and patient preference. Patient feels this may be coming from stress and tight shoulders. She certainly has no meningeal signs. She may continue to use ibuprofen or Tylenol as needed for discomfort. Will also give her Flexeril 10 mg tablets 1/2-1 tab p.o. q.8 - 12 hours as needed, 15. Via [employer]. Did discuss with her that this medication can be sedating so she should avoid any other sleep medications, driving, alcohol. 2. Disposition-home at this time. Patient feels she is able to drive home. She is not sleepy. She is alert and oriented. If headaches return, consider CT and or neurological consult. No history to suggest West Nile, Lyme disorder or polymyalgia rheumatica. Medical Records Attestation: I reviewed the patient's medical records. Lab Data Attestation: I reviewed the patient's lab results. Labs: Lab Results 02/18/25 Range/Units 19:29 WBC 5.64 (4.50-11.00) K/uL RBC 4.88 (4.00-5.20) m/uL Hgb 13.3 (12.0-16.0) gm/dL Hct 41.5 (33.0-51.0) % MCV 85 (80-100) fL MCH 27 (26-34) pg MCHC 32 (32-36) gm/dL RDW Coeff of Darcy 12.9 (11.5-15.5) % Plt Count 337 (140-440) K/uL Neut % (Auto) 43.9 (42.0-72.0) % Lymph % (Auto) 48.2 H (20-44) % [place] % (Auto) 6.6 (0.0-11.0) % Eos % (Auto) 0.4 (0.0-7.0) % Baso % (Auto) 0.7 (0.0-3.0) % Neut # (Auto) 2.48 (1.7-7.0) K/uL Lymph # (Auto) 2.70 (0.90-2.90) K/uL [place] # (Auto) 0.40 (0.00-0.90) K/UL Eos # (Auto) 0.02 (0.00-0.50) K/uL Baso # (Auto) 0.04 (0.00-0.30) K/uL Abs Immat Gran (auto) 0.01 (0.00-0.30) K/uL Imm/Tot Granulo (auto) 0.2 % Sodium 137 (135-149) mmol/L Potassium 3.7 (3.6-5.1) mmol/L Chloride 101 (96-114) mmol/L Carbon Dioxide 30 (20-32) mmol/L Anion Gap 6 L (7-15) mEq/L BUN 8 (5-24) mg/dL Creatinine 0.8 (0.5-1.5) mg/dL Estimated Creat Clear 73.93 Estimated GFR 95 ml/min Glucose 60 (60-115) mg/dL Calcium 9.3 (8.4-10.6) mg/dL C-Reactive Protein < 0.5 L (0.5-1.0) mg/dL SARS-CoV-2 (PCR) Negative SARS-CoV-2 (Negative) Group A Strep DNA NOT DETECTED (Not Detectd) Discharge Plan Discharge Clinical Impression: Headache Patient Disposition: Home, Self-Care Condition: Improved Additional Instructions: Rest, increase fluids. Flexeril as a muscle relaxant that you may use as needed. Please to not use with any other sleep medications, alcohol or if you are in a situation where you need to drive. This can make you sleepy. If you have return of symptoms or worsening symptoms please return to the emergency room. You did test negative for COVID and strep tonight. Prescriptions: No Action isotretinoin [Claravis] 20 mg capsule 20 mg PO DAILY spironolactone 100 mg tablet 100 mg PO DAILY minoxidil 2.5 mg tablet PO spironolactone 25 mg tablet 25 mg PO DAILY temazepam 30 mg capsule 30 mg PO QPM PRN albuterol sulfate 90 mcg/actuation HFA aerosol inhaler 1 - 2 puff INHALATION Q4H PRN (Reason: dyspnea) clindamycin phosphate 1 % lotion topical BID escitalopram oxalate 20 mg tablet 20 mg PO DAILY bupropion HCl 300 mg tablet extended release 24 hr 300 mg PO QAM isotretinoin 30 mg capsule 30 mg PO DAILY lisdexamfetamine 50 mg capsule 50 mg PO DAILY lisdexamfetamine 40 mg capsule PO QAM Winlevi 1 % cream topical BID Follow Up/Referrals: Provider,Not a Local [Primary Care Provider, Family Practice] Stand Alone Forms: [employer] Info Instructions
--- OUTSIDE RECORDS SUMMARY | 2025-02-18 19:46 | XMS_ITS | CCD ---
Author Name Interface, [address] lity Address [address] [phone] [facility] Address [address] [place] [address] Reason for Visit Social History Date Name Value 01/23/2025 Sex Female Gender Identity Identifies as fe male
--- OUTSIDE RECORDS SUMMARY | 2025-02-18 19:47 | XMS_ITS | CCD ---
Author Name Interface, [address] lity Address [address] [id number] [facility] Address [address] [place] [address] Reason for Visit Social History Date Name Value 01/23/2025 Sex Female Gender Identity Identifies as fe male
[2025-02-18] MEDS: METOCLOPRAMIDE HCL 10 MG in 0.9 % SODIUM CHLORIDE 100 ml 100 ML 306 MG IVPB (20:04)
[2025-02-18 20:10] LABS: Hematocrit* 41.5 % (33.0-51.0); Hemoglobin* 13.3 gm/dL (12.0-16.0); Immature Granulocytes Abs Auto 0.01 K/uL (0.00-0.30); Immature Granulocytes Pct Auto 0.2 %; Mean Corpuscular HGB Conc 32 gm/dL (32-36); Mean Corpuscular Hemoglobin 27 pg (26-34); Mean Corpuscular Volume 85 fL (80-100); RDW Coefficient of Variation % 12.9 % (11.5-15.5); Red Blood Count* 4.88 m/uL (4.00-5.20); White Blood Count* 5.64 K/uL (4.50-11.00)
[2025-02-18 20:11] LABS: Lymphocytes Absolute Auto 2.70 K/uL (0.90-2.90); Slide Review Reflex No
[2025-02-18 20:12] LABS: Chloride* 101 mmol/L (96-114)
[2025-02-18 20:13] LABS: Potassium* 3.7 mmol/L (3.6-5.1); Sodium* 137 mmol/L (135-149)
[2025-02-18 20:16] LABS: Anion Gap 6 mEq/L (7-15); Blood Urea Nitrogen* 8 mg/dL (5-24); Calcium* 9.3 mg/dL (8.4-10.6); Carbon Dioxide* 30 mmol/L (20-32); Creatinine* 0.8 mg/dL (0.5-1.5); Est. Creatinine Clearance* 73.93; Estimated Glomerular Filt Rate 95 ml/min; Glucose* 60 mg/dL (60-115)
[2025-02-18 20:25] LABS: Strep A DNA Probe* NOT DETECTED (Not Detectd)
[2025-02-18 20:32] LABS: SARS PCR* Negative SARS-CoV-2 (Negative)
== END 2025-02-18 21:34 | disposition home or self-care (01) ==
PROVIDERS: Emergency Provider Family Medicine
DX: R51.9 Headache, unspecified (principal)
CPT/HCPCS: 36415; 80048; 85025; 86140; 87635; 87651; 96365; 96375; 99284; J1200; J1885; J2765; J7030